=== PATIENT | female | born 1975 | race Two or more races ===

== ENCOUNTER 2017-03-19 05:39 | Inpatient (IN) | payer OTHER ==
[~2017-03-19] VITALS: Ht 152.4 cm; Wt 99.9 kg
[2017-03-19] VITALS (8 sets, daily range): BP systolic 104–137; BP diastolic 56–87; PULSE 81–113; RESP 18–19; Ht 152.4 cm; Wt 99.9 kg
[~2017-03-19 05:39] MED LIST: FERR325C PO; GLYB1.252 PO; PREN1TAB62 PO; TYL500 PO
[2017-03-19] MEDS ORDERED: OXYTOCIN 30 UNITS/LR 500 ML IV PRN ×2 (06:00→13:30)
[2017-03-19] MEDS ORDERED: MISOPROSTOL 200 MCG TAB PR PRN ×2 (06:00→13:30)
[2017-03-19] MEDS ORDERED: METHYLERGONOVINE 0.2 MG INJ IM PRN ×2 (06:00→13:30)
[2017-03-19] MEDS ORDERED: CEFAZOLIN 2 GM/50 ML (PMX) 50 ML IV SCH (06:00)
[2017-03-19] MEDS ORDERED: OXYTOCIN 30 UNITS/LR 500 ML IV SCH (06:00)
[2017-03-19] MEDS ORDERED: CARBOPROST 250 MCG INJ IM PRN ×2 (06:00→13:30)
[2017-03-19 06:31] LABS: ADD SCAN DIFF NO
[2017-03-19 06:34] LABS: BASOPHILS % 0.2 % (0.0-2.0); EOSINOPHILS # 0.1 10^3/ul (0.0-0.5); EOSINOPHILS % 1.1 % (0.0-7.0); HEMATOCRIT 34.5 % (37.0-47.0); HEMOGLOBIN 11.7 g/dl (12.0-16.0); LYMPHOCYTES # 2.7 10^3/ul (0.8-2.9); LYMPHOCYTES % 31.7 % (15.0-51.0); MEAN CORPUSCULAR HEMOGLOBIN 30.5 pg (29.0-33.0); MEAN CORPUSCULAR HGB CONC 33.9 g/dl (32.0-37.0); MEAN CORPUSCULAR VOLUME 89.8 fl (82.0-101.0); MEAN PLATELET VOLUME 10.4 fl (7.4-10.4); MONOCYTE # 0.5 10^3/ul (0.3-0.9); MONOCYTES % 5.9 % (0.0-11.0); NEUTROPHIL # 5.1 10^3/ul (1.6-7.5); NEUTROPHILS % 60.5 % (39.0-77.0); PLATELET COUNT 246 10^3/UL (140-415); RED BLOOD COUNT 3.84 10^6/ul (4.20-5.40); RED CELL DISTRIBUTION WIDTH 14.3 % (11.5-14.5); WHITE BLOOD COUNT 8.4 10^3/ul (4.8-10.8)
[2017-03-19] MEDS: LACTATED RINGER'S 1,000 ML IV SCH ×2 (06:39→07:02)
[2017-03-19] MEDS ORDERED: ONDANSETRON 4 MG INJ ONE ×2 (07:00→07:29)
[2017-03-19] MEDS ORDERED: OXYTOCIN 30 UNITS/LR 500 ML BAG IV ONE (07:00)
[2017-03-19 07:01] LABS: INR 0.94; PROTIME 12.6 Sec (12.2-14.2)
[2017-03-19 07:02] LABS: PARTIAL THROMBOPLASTIN TIME 27.5 Sec (25.0-35.0)
[2017-03-19] MEDS ORDERED: ONDANSETRON 4 MG INJ IV STA (07:24)
[2017-03-19] MEDS ORDERED: FAMOTIDINE 20 MG INJ ONE (07:30)
[2017-03-19] MEDS ORDERED: FAMOTIDINE 20 MG INJ IV ONE (07:30)
[2017-03-19] MEDS ORDERED: METOCLOPRAMIDE 10 MG INJ ONE ×2 (07:41→08:19)
[2017-03-19] MEDS ORDERED: morphine SULFATE/PF (10 MG/10 ML) INJ ONE (07:41)
[2017-03-19] MEDS ORDERED: OXYTOCIN 10 UNIT INJ ONE (07:42)
[2017-03-19] MEDS ORDERED: CEFAZOLIN 1 GM INJ ONE (07:42)
[2017-03-19] MEDS ORDERED: DEXAMETHASONE 4 MG/ML 1 ML INJ ONE (08:19)
[2017-03-19] MEDS ORDERED: PHENYLephrine (100 MCG/ML) 5ML SYG ONE (08:55)
--- NOTE | 2017-03-19 10:03 | OPR ---
Date/Time of Note Date/Time of Note DATE: 03/19/17 TIME: 09:53 Operative Report Free Text/Dictation 38 weeks complicated with a 2 diabetes history of previous requested BTL Preoperative Diagnosis Same as above Operation/Procedure Performed Repeat transverse lie presentation, bilateral tubal ligation Surgeon: KRISH ELIZABETH MD web marketing assistant: NEFTALY SUNG MD Anesthesia: spinal Estimated Blood Loss: other (600 and) Complications: None KRISH ELIZABETH MD Mar 19, 2017 10:02
--- NOTE | 2017-03-19 10:22 | HP ---
Date/Time of Note Date/Time of Note DATE: 03/19/17 TIME: 10:16 OB - History Hx of Present Free Text/Dictation 41 years old female 3 para 238 weeks complicated with gestational diabetes on glyburide 500 mg daily history of previous section recommended by the perinatologist delivery at 38 weeks requesting bilateral tubal ligation at the time of her section, complication of the surgery including but not limited to bowel and bladder injury wound infection and hematoma she would like to proceed with a also she is aware of failure rate of tubal ligation increased risk of ectopic and future failure to conceive knowing all of these facts she would like to undergo bilateral tubal ligation Chief Complaint: 38 weeks gestational diabetes previous requesting BTL Estimated Due Date: Apr 02, 2017 : 3 Para: 2 Care: Limited Care Ultrasounds: Normal mid trimester US Obstetrical Complications: Gestational Diabetes Medical Complications: None Past Family/Social History * Past Medical, Surgical, Family and Obstetric Histories reviewed from chart. Rubella: immune RPR/VDRL: Negative GBS Status: Negative HBsAG: Negative OB Admission Exam Vital Signs Vital Signs Vital Signs Date Time Temp Pulse Resp B/P Pulse Ox O2 Delivery O2 Flow Rate FiO2 03/19/17 06:31 98.2 82 18 120/87 Room Air Physical Exam HEENT: WNL Heart: Rhythm Normal Lungs: Clear, Equal Abdomen: WNL Extremities: Normal Reflexes: Normal Cervical Dilatation: None Station: Other (Transverse lie presentation) Membranes: Intact Accelerations: Accelerations Present Decelerations: No Decelerations Varibility: Moderate Contractions on Admission: >10 Minutes Apart Intensity: Mild Last 72 hours Lab Results CBC & BMP 03/19/17 06:10 OB Assessment/Plan Reason for admission: other (Repeat bilateral tubal ligation) Plan: Other (Repeat bilateral tubal ligation) KRISH ELIZABETH MD Mar 19, 2017 10:22
[2017-03-19] MEDS ORDERED: ONDANSETRON 4 MG INJ IV PRN (13:30)
[2017-03-19] MEDS ORDERED: KETOROLAC 30 MG INJ IV PRN (13:30)
[2017-03-19] MEDS ORDERED: CEFAZOLIN 1 GM/50 ML (PMX) 50 ML IVPB SCH ×2 (13:30→17:00)
[2017-03-19] MEDS ORDERED: DIPHENHYDRAMINE 50 MG INJ IV PRN (13:30)
[2017-03-19] MEDS ORDERED: NALOXONE (0.4 MG/ML) INJ IV PRN (13:30)
[2017-03-19] MEDS ORDERED: ACETAMINOPHEN/CODEINE #3 TAB PO PRN ×2 (13:30)
[2017-03-19] MEDS ORDERED: PROCHLORPERAZINE 10 MG INJ IV PRN (13:30)
[2017-03-19] MEDS: LANOLIN 7 GM TUBE TOP PRN (13:39)
[2017-03-19] MEDS: OXYTOCIN 30 UNITS/LR 500 ML IV SCH ×3 (13:40→22:19)
--- NOTE | 2017-03-19 14:04 | OPR ---
Operative Report Planned Procedure Free Text/Dictation Term history of previous request for bilateral tubal ligation Procedure date Mar 19, 2017 Procedure(s) Repeat bilateral tubal ligation Performed by: KRISH ELIZABETH MD Assisting provider: NEFTALY SUNG MD Anesthesiologist: ALBERT WORLEY MD Pre-procedure diagnosis Term history of previous request for bilateral tubal ligation Anesthesia Type: spinal Procedure Description Under satisfactory spinal anesthesia, the patient was prepped and draped and placed in a supine position, tilted to the left. Pfannenstiel incision was made , carried through the subcutaneous tissue. Bleeders brought under control with electrocautery. Fascia incised to the length of the incision. Rectus muscles from the fascia, divided midline. Peritoneum exposed, entered through a transverse incision. Exploration of abdomen revealed gravid uterus normal- appearing tubes and ovaries. Bladder flap was developed. Transverse incision was made in the lower segment of the uterus. Amniotic sac ruptured. Clear amniotic fluid noted. Live baby boy was delivered as breech since baby's position was transverse lie with hand protruding out from the incision and was gently returned to the uterine cavity transverse lie position manually changed to tawny breech presentation been baby was delivered as breech, shoulders delivered without any difficulty head delivered with [place] minus nasal oropharyngeal suction was performed. baby was handed to the team for immediate attention. placenta was delivered manually intact. Uterine cavity explored and cleaned with wet sponge drainage established. Uterus closed in 2 layers using [Monocryl #1] in continuous fashion bilateral tubal ligation performed by identifying the right fallopian tube, ampullary section of the tube was grasped by a [place] suture material used 0 plain catgut which was reinforced with the same suture material that portion of the tube was excised , cut end of the tube was cauterized and the specimen submitted to the pathology same procedure performed for the opposite side. Peritoneal cavity irrigated with warm saline. Sponge, needle and instrument count reported to be correct. Abdominal peritoneum closed with 2-0 chromic catgut continuously. Rectus muscle approximated with 2 0 chromic catgut Fascia closed with [#1 PDS], subcutaneous tissue approximated with few interrupted 2-0 chromic catgut skin closed with sidney. Estimated blood loss [600]mL. Urine bag contained [250]mL of clear urine patient tolerated procedure well transferred to recovery room in good condition Post-Procedure Findings: Live Baby [boy 8 9 below T vertex], Apgars [] and [], weight [], position [], [ ] presentation []cord. Complications: None Pt Condition post procedure: stable Physician Certification I, the undersigned physician, hereby certify that I have discussed the procedure described in this consent form with this patient (or the patient's legal employee's representative), including: * The risk and benefits of the procedure; * Any adverse reactions that may reasonably be expected to occur; * Any alternative efficacious methods of treatment which may be medically viable ; * The potential problems that may occur during recuperation; * Potential for blood transfusion and associated risks/benefits; and * Any research or economic interest I may have regarding this treatment. I further certify that the patient/legally responsible person was encouraged to ask question and that all questions were answered. KRISH ELIZABETH MD Mar 19, 2017 14:01
[2017-03-19] MEDS: HYDROmorphONE 1 MG/ML SYG IV PRN (22:26)
[2017-03-20 00:14] VITALS: BP 121/72; PULSE 75; RESP 19
[2017-03-20] MEDS: OXYTOCIN 30 UNITS/LR 500 ML IV SCH ×6 (01:11→21:11)
[2017-03-20] MEDS: LACTATED RINGER'S 1,000 ML IV SCH ×3 (02:54→19:00)
[2017-03-20] MEDS: HYDROmorphONE 1 MG/ML SYG IV PRN (05:48)
[2017-03-20 08:34] LABS: ADD SCAN DIFF NO
[2017-03-20 08:41] LABS: BASOPHILS % 0.2 % (0.0-2.0); EOSINOPHILS # 0.1 10^3/ul (0.0-0.5); EOSINOPHILS % 0.9 % (0.0-7.0); HEMATOCRIT 30.9 % (37.0-47.0); HEMOGLOBIN 10.3 g/dl (12.0-16.0); LYMPHOCYTES # 1.8 10^3/ul (0.8-2.9); LYMPHOCYTES % 20.7 % (15.0-51.0); MEAN CORPUSCULAR HGB CONC 33.3 g/dl (32.0-37.0); MEAN CORPUSCULAR VOLUME 90.1 fl (82.0-101.0); MEAN PLATELET VOLUME 10.3 fl (7.4-10.4); MONOCYTE # 0.3 10^3/ul (0.3-0.9); MONOCYTES % 3.9 % (0.0-11.0); NEUTROPHIL # 6.5 10^3/ul (1.6-7.5); NEUTROPHILS % 73.7 % (39.0-77.0); PLATELET COUNT 192 10^3/UL (140-415); RED BLOOD COUNT 3.43 10^6/ul (4.20-5.40); RED CELL DISTRIBUTION WIDTH 14.3 % (11.5-14.5); WHITE BLOOD COUNT 8.8 10^3/ul (4.8-10.8)
[2017-03-20 09:00] VITALS: BP 98/50; PULSE 99; RESP 18
[2017-03-20] MEDS: SENNA/DOCUSATE NA (8.6MG/50MG) TAB PO SCH ×2 (09:04→20:16)
[2017-03-20] MEDS: OXYCODONE/ACETAMINOPHEN (5/325) TAB PO PRN ×4 (09:04→20:18)
--- NOTE | 2017-03-20 10:55 | PN ---
Date/Time of Note Date/Time of Note DATE: 03/20/17 TIME: 10:52 OB Subjective Subjective Subjective March 20, 2017 Post day 1 hospital visit Doing Well Afebrile Ambulatory Chest Clear Breasts are soft , Laboratory Tests Test 03/20/17 08:25 White Blood Count 8.810^3/ul Red Blood Count 3.4310^6/ul Hemoglobin 10.3g/dl Hematocrit 30.9% Mean Corpuscular Volume 90.1fl Mean Corpuscular Hemoglobin 30.0pg Mean Corpuscular Hemoglobin Concent 33.3g/dl Red Cell Distribution Width 14.3% Platelet Count 66153^3/UL Mean Platelet Volume 10.3fl Neutrophils % 73.7% Lymphocytes % 20.7% Monocytes % 3.9% Eosinophils % 0.9% Basophils % 0.2% Nucleated Red Blood Cells % 0.0/100WBC Neutrophils # 6.510^3/ul Lymphocytes # 1.810^3/ul Monocytes # 0.310^3/ul Eosinophils # 0.110^3/ul Basophils # 0.010^3/ul Nucleated Red Blood Cells # 0.010^3/ul Current Medications Medications (Trade) Dose Ordered Sig/Francisca Route PRN Reason Start Time Stop Time Status Last Admin Dose Admin Lactated Ringer's 1,000 ml @ 125 mls/hr Q8H IV 03/19/17 05:56 03/19/17 13:15 DC 03/19/17 07:02 Cefazolin Sodium/ Dextrose 50 ml @ 100 mls/hr ONCE IV 03/19/17 06:00 03/19/17 13:16 DC Oxytocin/Lactated Ringer's 500 ml @ 125 mls/hr ONCE IV 03/19/17 06:00 03/19/17 13:16 DC 03/19/17 10:15 Oxytocin/Lactated Ringer's 500 ml @ 0 mls/hr ONCE PRN IV For Hemorrhage Management 03/19/17 06:00 03/19/17 13:16 DC Methylergonovine Maleate (Methergine) 0.2 mg ONCE PRN IM VAGINAL BLEEDING 03/19/17 06:00 03/19/17 13:16 DC Carboprost Tromethamine (Hemabate) 250 mcg ONCE PRN IM VAGINAL BLEEDING 03/19/17 06:00 03/19/17 13:16 DC Misoprostol (Cytotec) 1,000 mcg ONCE PRN TX VAGINAL BLEEDING 03/19/17 06:00 03/19/17 13:16 DC Famotidine (Pepcid Iv) 20 mg ONCE ONCE IV 03/19/17 07:30 03/19/17 07:35 DC 03/19/17 07:57 Ondansetron HCl (Zofran Inj) 4 mg ONCE STAT IV 03/19/17 07:24 03/19/17 07:35 DC 03/19/17 07:57 Ondansetron HCl (Zofran Inj) 4 mg STK-MED ONCE .ROUTE 03/19/17 07:29 03/19/17 07:30 DC Famotidine (Pepcid Iv) 20 mg STK-MED ONCE .ROUTE 03/19/17 07:30 03/19/17 07:31 DC Morphine Sulfate (Duramorph) 10 mg STK-MED ONCE .ROUTE 03/19/17 07:41 03/19/17 07:42 DC Metoclopramide HCl (Reglan) 10 mg STK-MED ONCE .ROUTE 03/19/17 07:41 03/19/17 07:42 DC Oxytocin (Oxytocin) 10 units STK-MED ONCE .ROUTE 03/19/17 07:42 03/19/17 07:43 DC Cefazolin Sodium (Ancef) 1 gm STK-MED ONCE .ROUTE 03/19/17 07:42 03/19/17 07:43 DC Metoclopramide HCl (Reglan) 10 mg STK-MED ONCE .ROUTE 03/19/17 08:19 03/19/17 08:20 DC Dexamethasone (Decadron) 4 mg STK-MED ONCE .ROUTE 03/19/17 08:19 03/19/17 08:20 DC Phenylephrine HCl (Simeon-Synephrine Inj Syg) 500 mcg STK-MED ONCE .ROUTE 03/19/17 08:55 03/19/17 08:56 DC Naloxone HCl (Narcan) 0.1 mg Q2M PRN IV FOR RESP RATE 8 OR LESS 03/19/17 13:30 03/20/17 13:29 Ketorolac Tromethamine (Toradol) 30 mg Q6H PRN IV PAIN 03/19/17 13:30 03/19/17 13:30 DC Hydromorphone HCl (Dilaudid) 0.4 mg Q3H PRN IV PAIN LEVEL 6-10 03/19/17 13:30 03/20/17 13:29 03/20/17 05:48 Diphenhydramine HCl (Benadryl) 25 mg Q6H PRN IV ITCHING 03/19/17 13:30 03/20/17 13:29 Ondansetron HCl (Zofran Inj) 4 mg Q6H PRN IV NAUSEA AND/OR VOMITING 03/19/17 13:30 03/20/17 13:29 Prochlorperazine (Compazine Inj) 10 mg ONCE PRN IV NAUSEA AND/OR VOMITING 03/19/17 13:30 03/20/17 13:29 Miscellaneous Information (* Miscellaneous Pharmacy Order) Duramorph: 0.25 mg ... GIVEN XX 03/19/17 13:30 03/19/17 13:30 DC Acetaminophen/ Codeine Phosphate (Tylenol No.3) 1 tab Q4H PRN PO PAIN LEVEL 4-6 03/19/17 13:30 Acetaminophen/ Codeine Phosphate (Tylenol No.3) 2 tab Q4H PRN PO PAIN LEVEL 7-10 03/19/17 13:30 Oxycodone/ Acetaminophen (Percocet (5/ 325)) 1 tab Q4H PRN PO PAIN LEVEL 4-6 03/19/17 13:30 Oxycodone/ Acetaminophen (Percocet (5/ 325)) 2 tab Q4H PRN PO PAIN LEVEL 7-10 03/19/17 13:30 03/20/17 09:04 Ibuprofen (Motrin) 600 mg Q6 PO 03/20/17 12:00 Simethicone (Mylicon) 160 mg Q8H PRN PO DISTENSION/GAS/BLOATING 03/19/17 13:30 Senna/Docusate Sodium (Senokot-S) 1 tab BID PO 03/20/17 09:00 03/20/17 09:04 Lanolin (Jmf-J-Cgdouk) 1 applic BEDSIDE MEDICATION PRN TOP BEDSIDE FOR TOY TO NIPPLES 03/19/17 13:30 03/19/17 13:39 Diphtheria/ Tetanus/Acell Pertussis 0.5 ml 0.5 ml ONCE ONCE IM* 03/22/17 09:00 03/22/17 09:01 Oxytocin/Lactated Ringer's 500 ml @ 0 mls/hr ONCE PRN IV For Hemorrhage Management 03/19/17 13:30 Methylergonovine Maleate (Methergine) 0.2 mg ONCE PRN IM VAGINAL BLEEDING 03/19/17 13:30 Carboprost Tromethamine (Hemabate) 250 mcg ONCE PRN IM VAGINAL BLEEDING 03/19/17 13:30 Misoprostol 1000 mcg 1,000 mcg ONCE PRN TX VAGINAL BLEEDING 03/19/17 13:30 Cefazolin Sodium 50 ml @ 100 mls/hr ONCE IVPB 03/19/17 13:30 03/19/17 13:37 DC Oxytocin/Lactated Ringer's 500 ml @ 125 mls/hr Q4H IV 03/19/17 13:11 03/19/17 22:19 Cefazolin Sodium 50 ml @ 100 mls/hr ONCE IVPB 03/19/17 17:00 03/19/17 17:29 DC 03/19/17 18:39 Lactated Ringer's (Lr) 1,000 ml @ 125 mls/hr Q8H IV 03/20/17 03:00 03/20/17 02:54 Nipples are intact Abdomen is soft Fundus is firm Moderate amount of lochia Incision is clean ,No evidence of infection No calf tenderness No ankle edema [place] is also doing well DA FERRARI MD Mar 20, 2017 10:55
[2017-03-20] MEDS: IBUPROFEN 600 MG TAB PO SCH ×3 (12:12→23:41)
[2017-03-20 15:40] VITALS: BP 106/63; PULSE 94; RESP 18
[2017-03-20 19:30] VITALS: BP 110/65; PULSE 72; RESP 20
[2017-03-21] MEDS: OXYTOCIN 30 UNITS/LR 500 ML IV SCH ×3 (01:11→09:11)
[2017-03-21] MEDS: LACTATED RINGER'S 1,000 ML IV SCH ×2 (03:00→11:00)
[2017-03-21 04:00] VITALS: BP 124/66; PULSE 83; RESP 19
[2017-03-21] MEDS: IBUPROFEN 600 MG TAB PO SCH ×4 (05:49→23:32)
[2017-03-21 08:50] VITALS: BP 133/74; PULSE 85; RESP 18
[2017-03-21] MEDS: OXYCODONE/ACETAMINOPHEN (5/325) TAB PO PRN ×2 (08:50→20:08)
[2017-03-21] MEDS: SENNA/DOCUSATE NA (8.6MG/50MG) TAB PO SCH ×2 (08:51→20:07)
--- NOTE | 2017-03-21 15:52 | PN ---
Date/Time of Note Date/Time of Note DATE: 03/21/17 TIME: 15:49 OB Subjective Subjective Subjective Post day 2 afebrile vital signs are stable abdomen soft mildly distended good bowel sounds present patient had bowel movement her lochia is moderate ambulation encouraged plan of a.m. discharge discussed OB Objective HEENT: WNL Heart: Rhythm Normal Lungs: Clear, Equal Abdomen: WNL Extremities: Normal Reflexes: Normal OB Assessment/Plan Other plan: Post day 2 progressing well her abdomen is soft she had normal bowel movement ambulating comfortably plan of a.m. discharge discussed KRISH ELIZABETH MD Mar 21, 2017 15:52
[2017-03-21 15:55] VITALS: BP 120/76; PULSE 86; RESP 18
[2017-03-21] MEDS ORDERED: NA PHOSPHATE/BIPHOS 133 ML ENEMA PR ONE (16:00)
[2017-03-21 20:08] VITALS: BP 128/80; PULSE 93; RESP 19
[2017-03-21] MEDS: LANOLIN 7 GM TUBE TOP PRN (23:33)
[2017-03-22 03:40] VITALS: BP 112/67; PULSE 82; RESP 19
[2017-03-22] MEDS: IBUPROFEN 600 MG TAB PO SCH ×3 (05:31→17:25)
[2017-03-22 07:53] VITALS: BP 114/60; PULSE 89; RESP 18
[2017-03-22] MEDS: OXYCODONE/ACETAMINOPHEN (5/325) TAB PO PRN (07:53)
[2017-03-22] MEDS: SENNA/DOCUSATE NA (8.6MG/50MG) TAB PO SCH (09:00)
[2017-03-22] MEDS ORDERED: DIPHTH/TET/ACEL PERTUSS (ADULT) 0.5 ML VIAL IM* ONE (09:00)
--- NOTE | 2017-03-22 10:44 | PD.PPDC ---
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
--- NOTE | 2017-03-22 10:50 | DS ---
Date/Time of Note Date/Time of Note DATE: 03/22/17 TIME: 10:48 Discharge Summary Admission/Discharge Info Admit Date/Time Mar 19, 2017 at 05:39 Discharge Date/Time March 22, 2017 at 1045 Patient Condition: Good Procedures Repeat Hx of Present Illness history of previous Hospital Course Satisfactory uneventful Home Meds Active Scripts Acetaminophen* (Tylenol*) 500 Mg Tab, 500 MG PO Q6 Y for MILD PAIN LEVEL 1-3, # 30 TAB Prov:RADHA ACUÑA DIRECTOR CHANNEL 03/06/15 Reported Medications Glyburide* (Glyburide*) 1.25 Mg Tablet, 1.25 MG PO DAILY, #3 TAB 01/14/15 Ferrous Sulfate (Iron) 325 Mg Capsr, 325 MG PO 01/14/15 Vit-Iron Fumarate-FA ( Vitamin Tablet) 1 Each Tablet, 1 TAB PO DAILY, TAB 01/14/15 Follow-up Plan Appointment clinic in 4 days for post check removal of sidney Primary Care Provider [facility] KRISH ELIZABETH MD Mar 22, 2017 10:50
[2017-03-22 16:00] VITALS: BP 123/83; PULSE 89; RESP 20
== END 2017-03-22 18:36 | disposition home or self-care (01) | DRG 766 ==
LOC: L-D 05:39 → PP1 13:43
PROVIDERS: ADMIT Obstetrics & Gynecology; ATTEND Obstetrics & Gynecology
PROC: 0UL70ZZ Occlusion of Bilateral Fallopian Tubes, Open Approach (ICD-10-PCS; 2017-03-19)
PROC: 10D00Z1 Extraction of Products of Conception, Low, Open Approach (ICD-10-PCS; principal; 2017-03-19 07:30)
DX: O34.211 Maternal care for low transverse scar from previous cesarean delivery (principal); O24.429 Gestational diabetes mellitus in childbirth, unspecified control; Z30.2 Encounter for sterilization; Z3A.38 38 weeks gestation of pregnancy; Z37.0 Single live birth
CPT/HCPCS: 82947; 82962; 85025; 85610; 85730; 86592; 86850; 86900; 86901; 87340; 88302; 90715; 99464; J0690; J1100; J1170; J2274; J2370; J2405; J2590; J2765; J7120